=== PATIENT | male | born 1955 | race Caucasian/White ===

== ENCOUNTER 2019-02-11 10:34 | Emergency (ER) | payer BC ==
--- NOTE | 2019-02-11 10:45 | EDM.PDOC ---
ED HPI GENERAL MEDICAL PROBLEM - General Stated Complaint: FLUID ON LUNGS Time Seen by Provider: 02/11/19 10:36 Source of Information: Reports: Patient History Limitations: Reports: No Limitations - History of Present Illness INITIAL COMMENTS - FREE TEXT/NARRATIVE: HISTORY AND PHYSICAL: History of present illness: Patient is a 63-year-old male who presents to the emergency room with complaints of shortness of breath and productive cough. Patient does have a history of stage IV lung cancer and is currently receiving oral daily chemotherapy. He had labs drawn on 02/08/2019 along with a chest x-ray and 2018. They encouraged him to follow up in the ER yesterday, he states that he had been busy but decided to come in today for further evaluation. He does have home oxygen which she routinely uses, but states that he frequently goes without it. States his oxygen usually sits in the low 90s. Over the past 1 week he has had increased shortness of breath and concerned as he is coughing up thick copious amounts of phlegm. Patient does have chronic back pain as he states that the "cancer is eating at my spine". Patient denies any fever, chills, headache, change in vision, syncope or near syncope. Denies any chest pain. Denies any abdominal pain, nausea, vomiting, diarrhea, constipation or dysuria. Has not noted any blood in urine or stool. Patient has been eating and drinking appropriately. Review of systems: As per history of present illness and below otherwise all systems reviewed and negative. Past medical history: As per history of present illness and as reviewed below otherwise noncontributory. Surgical history: As per history of present illness and as reviewed below otherwise noncontributory. Social history: See social history for further information Family history: As per history of present illness and as reviewed below otherwise noncontributory. Physical exam: General: Chronically ill-appearing 63-year-old male. Alert and oriented. Nontoxic appearing and in no acute distress. HEENT: Atraumatic, normocephalic, pupils equal and reactive bilaterally, negative for conjunctival pallor or scleral icterus, mucous membranes moist, trachea midline. No drooling or trismus noted. No meningeal signs. No hot potato voice noted. Lungs: Unable to auscultate lung sounds on the right, clear lung sounds on the left, chest nontender. Heart: S1S2, regular rate and rhythm without overt murmur Abdomen: Soft, nondistended, nontender. Negative for masses or hepatosplenomegaly. Negative for costovertebral tenderness. Pelvis: Stable nontender. Genitourinary: Deferred. Rectal: Deferred. Skin: Intact, warm, dry. No lesions or rashes noted. Extremities: Atraumatic, moves all extremities per self without difficulty or deficits, negative for cords or calf pain. Neurovascular unremarkable. Neuro: Awake, alert, oriented. Cranial nerves II through XII unremarkable. Cerebellum unremarkable. Motor and sensory unremarkable throughout. Exam nonfocal. Notes: Chest x-ray that was done on 02/09/2019: No change in continued complete opacification of the right hemothorax with mild shift of the mediastinum towards the right. Findings consistent with a combination of complete right lung atelectasis and effusion. Stable subtle nodular mass in the left infrahilar lung. New small left pleural effusion. 1115: Dr Esparza, general surgeon, was consulted on this patient. 1240: Dr Esparza here; requesting CT chest. 1330: CT shows continued complete opacification of the right hemithorax from a combination of a large right pleural effusion and complete atelectasis of the right lung produced by soft tissue or dense mucous obstructing the right mainstem bronchus just beyond the anita. Slight decrease in size of soft tissue mass in the left inferior hilum. No change in moderate left inferior hilar adenopathy. Moderate mediastinal adenopathy probably unchanged. Stable appearance of numerous sclerotic osseous lesions consistent with metastatic disease. Patient is aware of his testing results. He states he does not want anything done at this time and would like to leave AGAINST MEDICAL ADVICE. He is aware of the risks of leaving AGAINST MEDICAL ADVICE and continues to want to leave. Dr Esparza was made aware. Diagnostics: CBC, CMP, lactic acid, blood cultures 2 Therapeutics: [employer] Prescription: None Impression: Stage 4 Lung Cancer Right Pleural Effusion and completed atelectasis Plan: Patient signed out Against Medical Advice Definitive disposition and diagnosis as appropriate pending reevaluation and review of above. - Related Data Allergies Allergy/AdvReac Type Severity Reaction Status Date / Time No Known Allergies Allergy Verified 09/24/18 10:08 Home Meds: Home Meds Albuterol [Ventolin HFA] 2 puff INH TID PRN 09/24/18 [History] dexAMETHasone [Dexamethasone] 0.5 mg PO TID 09/24/18 [History] oxyCODONE 5 mg PO Q6HR PRN 09/24/18 [History] Azithromycin 500 mg PO DAILY #5 tablet 09/25/18 [Rx] Amoxicillin 500 mg PO BID 02/11/19 [History] Furosemide [Lasix] 20 mg PO DAILY 02/11/19 [History] Levofloxacin [Levaquin] 500 mg PO DAILY 02/11/19 [History] Morphine Sulfate [Morphine Sulfate ER] 1 tab PO Q8HR PRN 02/11/19 [History] Potassium Chloride 1 tab PO BID 02/11/19 [History] Prochlorperazine [Compazine] 10 mg PO Q6HR PRN 02/11/19 [History] Past Medical History HEENT History: Reports: None Cardiovascular History: Reports: None Respiratory History: Reports: Other (See Below) Other Respiratory History: Lung cancer Gastrointestinal History: Reports: None Genitourinary History: Reports: None Musculoskeletal History: Reports: None Psychiatric History: Reports: None Endocrine/Metabolic History: Reports: None Hematologic History: Reports: None Immunologic History: Reports: None Oncologic (Cancer) History: Reports: Lung, Other (See Below) Other Oncologic History: Spinal Dermatologic History: Reports: None - Infectious Disease History Infectious Disease History: Reports: Chicken Pox, Measles, Mumps - Past Surgical History Head Surgeries/Procedures: Reports: None HEENT Surgical History: Reports: None Cardiovascular Surgical History: Reports: None Respiratory Surgical History: Reports: None GI Surgical History: Reports: None Male Surgical History: Reports: None Endocrine Surgical History: Reports: None Neurological Surgical History: Reports: C-Spine Musculoskeletal Surgical History: Reports: None Oncologic Surgical History: Reports: None Dermatological Surgical History: Reports: None Social & Family History - Family History Family Medical History: Noncontributory - Caffeine Use Caffeine Use: Reports: Soda ED ROS GENERAL - Review of Systems Review Of Systems: ROS reveals no pertinent complaints other than HPI. ED EXAM, GENERAL - Physical Exam Exam: See Below (See dictation) Course - Vital Signs Last Recorded V/S: Last Vital Signs Temp 97.1 F 02/11/19 10:46 Pulse 74 02/11/19 10:46 Resp 20 02/11/19 10:46 BP 112/46 L 02/11/19 10:46 Pulse Ox 96 05/31/19 10:46 - Orders/Labs/Meds Orders: Active Orders 24 hr Category Date Time Status Chest 2V [CR] Stat Exams 02/11/19 11:28 Taken Chest wo Cont [CT] Stat Exams 02/11/19 12:41 Taken CULTURE BLOOD [BC] Stat Lab 02/11/19 10:40 Received CULTURE BLOOD [BC] Stat Lab 02/11/19 10:58 Received Blood Culture x2 Reflex Set [OM.PC] Stat Oth 02/11/19 10:46 Ordered Labs: Laboratory Tests 02/11/19 02/11/19 02/11/19 Range/Units 10:40 10:40 10:40 WBC 3.39 L (4.0-11.0) K/uL RBC 4.22 L (4.50-5.90) M/uL Hgb 12.2 L (13.0-17.0) g/dL Hct 37.6 L (38.0-50.0) % MCV 89.1 (80.0-98.0) fL MCH 28.9 (27.0-32.0) pg MCHC 32.4 (31.0-37.0) g/dL RDW Std Deviation 45.8 (28.0-62.0) fl RDW Coeff of Chandu 14 (11.0-15.0) % Plt Count 118 L (150-400) K/uL MPV 9.30 (7.40-12.00) fL Neut % (Auto) 74.3 (48.0-80.0) % Lymph % (Auto) 11.2 L (16.0-40.0) % [place] % (Auto) 8.6 (0.0-15.0) % Eos % (Auto) 5.0 (0.0-7.0) % Baso % (Auto) 0.9 (0.0-1.5) % Neut # (Auto) 2.5 (1.4-5.7) K/uL Lymph # (Auto) 0.4 L (0.6-2.4) K/uL [place] # (Auto) 0.3 (0.0-0.8) K/uL Eos # (Auto) 0.2 (0.0-0.7) K/uL Baso # (Auto) 0.0 (0.0-0.1) K/uL Nucleated RBC % 0.0 /100WBC Nucleated RBCs # 0 K/uL Lactate 0.8 (0.20-2.00) mmol/L Sodium 140 (136-148) mmol/L Potassium 4.0 (3.5-5.1) mmol/L Chloride 102 (98-107) mmol/L Carbon Dioxide 28.8 (21.0-32.0) mmol/L BUN 18 (7.0-18.0) mg/dL Creatinine 0.9 (0.8-1.3) mg/dL Est Cr Clr Drug Dosing TNP Estimated GFR (MDRD) > 60.0 ml/min Glucose 107 H (74-106) mg/dL Calcium 8.9 (8.5-10.1) mg/dL Total Bilirubin 0.5 (0.2-1.0) mg/dL AST 29 (15-37) IU/L ALT 16 (14-63) IU/L Alkaline Phosphatase 155 H (46-116) U/L Total Protein 7.8 (6.4-8.2) g/dL Albumin 3.7 (3.4-5.0) g/dL Globulin 4.1 H (2.6-4.0) g/dL Albumin/Globulin Ratio 0.9 (0.9-1.6) Departure - Departure Time of Disposition: 13:37 Disposition: Against Medical Advice 07 Clinical Impression: Pleural effusion on right, Left against medical advice Stage 4 lung cancer Qualifiers: Laterality: right Qualified Code(s): C34.91 - Malignant neoplasm of unspecified part of right bronchus or lung - Discharge Information Referrals: Judson Esparza MD [Primary Care Provider] - - My Orders Last 24 Hours: My Active Orders 02/11/19 10:40 CULTURE BLOOD [BC] Stat 02/11/19 10:46 Blood Culture x2 Reflex Set [OM.PC] Stat 02/11/19 10:58 CULTURE BLOOD [BC] Stat 02/11/19 11:28 Chest 2V [CR] Stat 02/11/19 12:41 Chest wo Cont [CT] Stat - Assessment/Plan Last 24 Hours: My Active Orders 02/11/19 10:40 CULTURE BLOOD [BC] Stat 02/11/19 10:46 Blood Culture x2 Reflex Set [OM.PC] Stat 02/11/19 10:58 CULTURE BLOOD [BC] Stat 02/11/19 11:28 Chest 2V [CR] Stat 02/11/19 12:41 Chest wo Cont [CT] Stat
[2019-02-11 11:31] LABS: CHLORIDE,CL 102 mmol/L (98-107); SODIUM,NA 140 mmol/L (136-148)
--- NOTE | 2019-02-11 13:32 | CT ---
INDICATION: History of lung cancer. Collapsed lung. COMPARISON: 11/02/2018 TECHNIQUE: : CT examination of the chest was performed without contrast enhancement using spiral technique. 3 mm thick axial, sagittal, and coronal sections were obtained from above the apices of the lungs to the lung bases. Please note that all CT scans at this facility use dose modulation, iterative reconstruction, and/or weight-based dosing when appropriate to reduce radiation dose to as low as reasonably achievable. FINDINGS: : Again seen is complete opacification of the right hemithorax produced by a large right pleural effusion with complete atelectasis of the right lung. There is complete obstruction of the right mainstem bronchus just beyond the anita by soft tissue. Calcifications are again seen scattered throughout the atelectatic right lung, along the bronchial tree. Again seen is mild shift of the mediastinum towards the right. Again seen is moderate left inferior hilar adenopathy associated with a mass in the left inferior hilum with central calcifications. The mass has slightly decreased in size during the interval, now measuring 3.4 x 2.9 by 3.4 centimeters, previously 4.4 x 3.6 x 3.4 centimeters in the same area. There has been increase in the mild left pleural effusion. There is new mild platelike atelectasis of the left lung base adjacent to the pleural effusion. Again seen are a few small pleural nodules on the left major fissure. There is probably no change in moderate mediastinal adenopathy, with soft tissue fullness and calcifications in the right paratracheal, precarinal, and subcarinal regions. The heart and great vessels are normal in appearance aside from being shifted towards the right. There is no sign of supraclavicular or axillary mass or adenopathy. The visualized superior liver, spleen, pancreas, kidneys, and adrenals are normal in appearance. Again seen are multiple expansile blastic lesions in the ribs consistent with metastatic disease to the bone. Again seen are the extensive blastic lesions in the T11, L2, and L3 vertebral bodies consistent with metastatic disease. The mild superior and inferior T11 endplate fractures are unchanged. The blastic lesions in the scapular spines are unchanged. IMPRESSION: Continued complete opacification of the right hemithorax from a combination of a large right pleural effusion and complete atelectasis of the right lung produced by soft tissue or dense mucous obstructing the right mainstem bronchus just beyond the anita. Slight decrease in size of soft tissue mass in the left inferior hilum. No change in moderate left inferior hilar adenopathy. Moderate mediastinal adenopathy probably unchanged. Stable appearance of numerous sclerotic osseous lesions consistent with metastatic disease. Please note that all CT scans at this facility use dose modulation, iterative reconstruction, and/or weight-based dosing when appropriate to reduce radiation dose to as low as reasonably achievable. Dictated by Cesar Willett MD @ Feb 11 2019 1:12PM Signed by Dr. Cesar Willett @ Feb 11 2019 1:30PM
--- NOTE | 2019-02-11 14:09 | PCM.SN ---
- Free Text/Narrative Note: Consulted for R lung "white out", recommend to have ct chest, no contrast, to assess lung collapse vs plueaural effusion; expected to see pt after chest ct; ct done, reading was large pleural effusion + lung collapse; recommend pt to have bronchoscopy to have lung open up; about to go talk w pt; nursing staff said pt signed out AMA; so pt has not been seen my me. [id number]
--- NOTE | 2019-02-11 20:38 | CONS ---
DATE OF CONSULTATION: 02/11/2019 DATE OF : 1955 PRIMARY CARE PHYSICIAN: Judson Esparza MD This is a consult from ER doctor, Dr. Rodríguez. CONCERNING QUESTION: Fluid in the lung. HISTORY OF PRESENT ILLNESS: The patient is a 63-year-old gentleman with stage IV lung cancer and was complaining about shortness of breath 2 to 3 days ago, seen in the emergency room and today came back for the similar problem and the patient was noted to have a complete white-out of the right lung 2 days ago and today on repeat chest x-ray, also a complete white-out. Surgery was then consulted. After I was called for the consult, I looked at the x-ray and suspect this is not a pleural effusion, instead it is likely a mucus plug on the mainstem bronchus on the right side and caused a collapse, atelectasis of the lung and believe the patient probably would benefit to have a chest CT scan to determine whether this is a pleural effusion or lung collapse and as expecting to see the patient after CT scan of the lung. When a CT scan of the lung complete Radiology reading as pleural effusion plus atelectasis, the patient then decided to leave AMA. With the patient's situation, pleural effusion, and lung collapse, the patient really should have a bronchoscopy to remove the mucus plug and however, according to nursing staff, the patient already signed out AMA, so the patient has never been seen or examined by myself other than the x-ray. EPIFANIO / JUSTINE /[id number]
--- NOTE | 2019-02-14 11:29 | CR ---
EXAM DATE: 02/11/19 PATIENT'S AGE: 63 Patient: ADAM MICHALES Facility: [facility] Site Site : 1955 Study: XRay-Chest [id number]/31/2019 12:00:14 PM Ordering Physician: EVERETT BULLARD Final Report: INDICATION: Chest pain and shortness of breath. COMPARISON: 02/09/2019 and 09/24/2018 FINDINGS: PA and lateral views of the chest were obtained. There continues to be complete opacification of the right hemithorax with fluid or atelectatic lung. There is no change in the abrupt cutoff of the right mainstem bronchus. I do not see any surgical clips in the right hilum. Again seen is an old, healed fracture of the posterior-lateral right 7th rib. I suggest correlation with the patient`s clinical history. Again seen is mild shift of the mediastinum towards the right. There is no change in blunting of the left costophrenic angle which appears to be scarring rather than a pleural effusion. Again seen is the old, healed fracture of the left posterior-lateral 8th rib. The left lung is otherwise clear. The heart remains normal in size. The mediastinum is normal in appearance. The osseous structures are normal in appearance for the patient`s age. IMPRESSION: Stable appearance of the chest with continued complete consolidation of the right hemithorax with mild shift of the mediastinum towards the right. No change in blunting of the left costophrenic angle, probably scarring. The left lung is otherwise clear. Dictated by Cesar Wlilett MD @ Feb 11 2019 12:12PM Signed by: Cesar Willett MD @02/11/2019 12:16:25 PM (Electronic Signature) Report Signed by Proxy. FRANCIE
== END 2019-02-11 13:45 | disposition left against medical advice (07) ==
LOC: MW.ED 10:34
DX: J90 Pleural effusion, not elsewhere classified (principal); C34.91 Malignant neoplasm of unspecified part of right bronchus or lung; Z79.899 Other long term (current) drug therapy
CPT/HCPCS: 36415; 71046; 71046-26; 71250; 71250-26; 80053; 83605; 85025; 87040; 99284; 99285-25